=== PATIENT | female | born 1990 | race Caucasian/White ===

== ENCOUNTER 2020-10-22 15:59 | Emergency (ER) | payer OTHER ==
[2020-10-22 16:23] VITALS: TEMP 99.4; BMI 26.9
[2020-10-22 17:55] LABS: URINE APPEARANCE CLOUDY; URINE BILIRUBIN NEGATIVE (NEGATIVE); URINE COLOR YELLOW; URINE GLUCOSE (UA) NEGATIVE (NEGATIVE); URINE KETONE NEGATIVE (NEGATIVE); URINE LEUK ESTERASE NEGATIVE (NEGATIVE); URINE NITRITE NEGATIVE (NEGATIVE); URINE PROTEIN NEGATIVE (NEGATIVE)
[2020-10-22 18:03] LABS: HCG,QUALITATIVE URINE Negative
[2020-10-22 18:16] VITALS: BP 114/66; PULSE 89
== END 2020-10-22 18:16 | disposition home or self-care (01) ==
LOC: JERFT 15:59 → JER 15:59
DX: N93.8 Other specified abnormal uterine and vaginal bleeding (principal)
CPT/HCPCS: 81003; 84703; 87086; 99283-25